=== PATIENT | male | born 1980 | race Caucasian/White ===

== ENCOUNTER 2021-07-07 06:35 | Outpatient (CLI) | payer BC, SELFPAY ==
--- NOTE | ~2021-07-07 | MR_ITS ---
EXAMINATION: MR ankle LT wo con DATE: 07/07/2021 07:49 INDICATION: Left Achilles tendon strain TECHNIQUE: Magnetic resonance imaging (MRI) of the left ankle was performed without intravenous contr ast. Sequences included sagittal, coronal, and axial proton-density weighted fast spin echo without a nd with fat saturation. COMPARISON: None. FINDINGS: Medial ankle ligaments: Deep and superficial deltoid ligaments as well as the spring ligament are normal. Lateral ankle ligaments: The anterior and posterior inferior tibiofibular ligaments are normal. The anterior talofibular, calc aneofibular and posterior talofibular ligaments are normal. Tendons: There is mild insertional tendinosis of the Achilles tendon which is mildly thickened with mild incre ased intrasubstance signal but without discrete tear. There is increased fluid signal and mild marrow edema between the tendon and the cephalad aspect of the posterior tuberosity of the calcaneus consis tent with moderate retrocalcaneal bursitis. The peroneus longus and brevis tendons are normal. The ti bialis anterior and extensor hallucis longus and extensor digitorum longus tendons are normal. The ti bialis posterior, flexor digitorum longus and flexor hallucis longus tendons are normal. Plantar fascia: Plantar aponeurosis is normal aside from a very small plantar calcaneal spur at its calcaneal origin. Bones/other: Bone alignment is normal. No fracture or pathologic marrow replacing process. Joint spaces are normal . No joint effusions. IMPRESSION: 1. Moderate retrocalcaneal bursitis with mild Achilles insertional tendinosis without discrete tear. Reviewed, dictated and finalized at location A. IMPRESSION: 1. Moderate retrocalcaneal bursitis with mild Achilles insertional tendinosis w ithout discrete tear.
== END 2021-07-07 06:36 | disposition home or self-care (01) ==
PROVIDERS: PCP Internal Medicine; Visit Provider Orthopaedic Surgery
DX: S86.012A Strain of left Achilles tendon, initial encounter (principal)
CPT/HCPCS: 73721